=== PATIENT | male | born 1965 | race Caucasian/White ===

== ENCOUNTER → 2021-12-26 | Outpatient (CLI) | payer BC ==
--- NOTE | 2021-12-26 17:12 | RAD ---
EXAM: Cervical spine, 5 views. HISTORY: Pain. Radiculopathy. COMPARISON: None. FINDINGS: 5 views of the cervical spine are obtained. There is degenerative endplate remodeling with disc space narrowing and anterior spurring primarily at C5-C6 and C6-C7. There is no significant list hesis. There is no fracture. There is multilevel facet arthropathy, contributing to bilateral foramin al stenosis primarily at C5-C6 and C6-C7. IMPRESSION: Multilevel degenerative change involving the cervical spine, described in detail above. T his results in foraminal stenosis primarily at the lower cervical levels. Electronically signed by: Carley Rogers MD (12/26/2021 5:10 PM) [id number]
== END ==
LOC: RAD 13:48
PROVIDERS: ATTEND Family Medicine
DX: M47.22 Other spondylosis with radiculopathy, cervical region (principal); M48.02 Spinal stenosis, cervical region; M48.8X2 Other specified spondylopathies, cervical region; M46.02 Spinal enthesopathy, cervical region
CPT/HCPCS: 72050

== ENCOUNTER → 2022-01-04 | Outpatient (CLI) | payer BC ==
--- NOTE | 2022-01-04 10:48 | KCIC ---
MRI cervical spine without contrast HISTORY: Abnormal x-ray cervical spine. Cervical radiculopathy at C8. Left upper extremity pain and n umbness. FINDINGS: Craniocervical junction intact. Cervical vertebral body height and alignment is intact. No bone marrow edema of the cervical spine. Posterior cranial fossa is normal. Cervical spinal cord demo nstrates no lesion or syrinx. Paraspinal tissues are normal. Diffuse degenerative disc desiccation th roughout the cervical spine is present. Cervical disc disease is described further in detail below. C2-C3: Minimal bulging disc annulus. No spinal canal or neural foraminal stenosis. C3-C4: Mild right eccentric disc bulge and right uncovertebral bony spurring. There is moderate-sever e right neural foraminal stenosis. Left neural foramen is patent. No spinal canal stenosis the midlin e dural sac diameter is 13 mm. C4-C5: Mild disc bulge and left greater than right uncovertebral spurring. Moderate-severe left neura l foraminal stenosis. Moderate right neural foraminal stenosis. No spinal canal stenosis midline dura l sac diameter is 12 mm. C5-C6: Disc height loss, moderate left eccentric disc bulge with disc osteophyte and left greater arley n right uncovertebral bony spurring. Severe bilateral neural foraminal stenoses. Mild spinal canal st enosis dural sac diameter is 9 mm. C6-C7: Disc height loss, moderate disc bulge with very mild disc osteophyte and bilateral uncovertebr al spurring. Mild ligament flavum thickening. Moderate neural foraminal stenosis. Mild spinal canal s tenosis dural sac diameter is 9 mm. C7-T1: Mild disc bulge with a focal superimposed central disc extrusion extending slightly inferior t o the disc level mildly deforms the ventral dural sac. Mild spinal canal stenosis dural sac diameter is 9 mm. Neural foramina are patent. IMPRESSION: Cervical disc disease. This contributes to mild spinal canal stenoses, and moderate-sever e neural foraminal stenoses, as described above. Electronically signed by: Freddie Morataya MD (01/04/2022 10:46 AM) [facility]
== END ==
LOC: KCIC MRI 09:06
PROVIDERS: ATTEND Family Medicine
DX: R93.7 Abnormal findings on diagnostic imaging of other parts of musculoskeletal system (principal); M50.10 Cervical disc disorder with radiculopathy, unspecified cervical region; M51.24 Other intervertebral disc displacement, thoracic region; M50.31 Other cervical disc degeneration, high cervical region; M48.02 Spinal stenosis, cervical region
CPT/HCPCS: 72141